=== PATIENT | female | born 1995 | race Caucasian/White ===

== ENCOUNTER 2020-04-13 08:01 | Outpatient (CLI) | payer OTHER ==
[~2020-04-13 08:01] MED LIST: COLACE 100MG C100 MG PO; FEOSOL325 MG PO; MACROBID 100 M100 MG PO; PRENATAL VITAM1 EAC3 PO
== END 2020-04-13 11:43 | disposition home or self-care (01) ==
LOC: GENOP 08:01
DX: O99.891 Other specified diseases and conditions complicating pregnancy (principal); M54.5 Low back pain; R10.9 Unspecified abdominal pain; Z3A.30 30 weeks gestation of pregnancy
CPT/HCPCS: 81001; 82731; G0463

== ENCOUNTER 2020-05-12 14:55 | Outpatient (CLI) | payer OTHER | END 2020-05-12 17:28 | disposition home or self-care (01) | LOC: GENOP 14:55 | DX: O26.893 Other specified pregnancy related conditions, third trimester (principal); R10.9 Unspecified abdominal pain; Z3A.34 34 weeks gestation of pregnancy | CPT/HCPCS: 81001; G0463 ==

== ENCOUNTER 2020-05-19 21:59 | Outpatient (CLI) | payer OTHER | END 2020-05-19 22:36 | disposition home or self-care (01) | LOC: GENOP 21:59 | DX: O42.913 Preterm premature rupture of membranes, unspecified as to length of time between rupture and onset of labor, third trimester (principal); Z3A.35 35 weeks gestation of pregnancy | CPT/HCPCS: 83518; G0463 ==

== ENCOUNTER 2020-05-23 10:40 | Outpatient (CLI) | payer OTHER | END 2020-05-23 12:48 | disposition home or self-care (01) | LOC: GENOP 10:40 | DX: Z04.2 Encounter for examination and observation following work accident (principal); O36.8120 Decreased fetal movements, second trimester, not applicable or unspecified; Z3A.24 24 weeks gestation of pregnancy; W19.XXXA Unspecified fall, initial encounter; Y92.9 Unspecified place or not applicable; Y99.0 Civilian activity done for income or pay | CPT/HCPCS: 59025; 81001 ==

== ENCOUNTER 2020-06-11 13:16 | Outpatient (CLI) | payer OTHER ==
[2020-06-11 14:13] LABS: RED BLOOD COUNT 3.56 M/UL (4.00-5.10); WHITE BLOOD COUNT 8.6 K/UL (4.5-11.0)
== END 2020-06-11 14:28 | disposition home or self-care (01) ==
LOC: GENOP 13:16
PROVIDERS: Obstetrics & Gynecology
DX: Z01.812 Encounter for preprocedural laboratory examination (principal); O34.219 Maternal care for unspecified type scar from previous cesarean delivery
CPT/HCPCS: 36415; 81001; 85025; 87661

== ENCOUNTER 2020-06-14 07:43 | Inpatient (IN) | payer OTHER ==
[~2020-06-14] VITALS: Ht 167.6 cm; Wt 116.6 kg
[2020-06-14] MEDS ORDERED: PRENATA CHEWAB1 EACH PO (08:35)
[2020-06-14] MEDS ORDERED: IBUPROFEN600 MG PO (09:09)
[2020-06-14] MEDS ORDERED: HYDROCODON-ACE1 EAC4 PO ×2 (09:09→09:17)
[2020-06-14] MEDS ORDERED: DOCUSATE SODIU100 MG PO (09:09)
[2020-06-15 04:56] LABS: HEMOGLOBIN 8.2 gm/dl (12.3-15.3)
== END 2020-06-16 17:24 | disposition home or self-care (01) | DRG 788 ==
LOC: OB 07:43
PROVIDERS: ADMIT Obstetrics & Gynecology
PROC: 10D00Z1 Extraction of Products of Conception, Low, Open Approach (ICD-10-PCS; 2020-06-14)
PROC: 4A1HX4Z Monitoring of Products of Conception, Cardiac Electrical Activity, External Approach (ICD-10-PCS; principal; 2020-06-14 09:00)
DX: O34.211 Maternal care for low transverse scar from previous cesarean delivery (principal); N85.8 Other specified noninflammatory disorders of uterus; O99.214 Obesity complicating childbirth; E66.01 Morbid (severe) obesity due to excess calories; Z20.822 Contact with and (suspected) exposure to COVID-19; J45.909 Unspecified asthma, uncomplicated; K43.9 Ventral hernia without obstruction or gangrene; K66.0 Peritoneal adhesions (postprocedural) (postinfection); O90.2 Hematoma of obstetric wound; Z3A.39 39 weeks gestation of pregnancy; Z37.0 Single live birth; Z80.9 Family history of malignant neoplasm, unspecified; Z83.3 Family history of diabetes mellitus; Z84.89 Family history of other specified conditions; Z82.49 Family history of ischemic heart disease and other diseases of the circulatory system
CPT/HCPCS: 36415; 81001; 82800; 85014; 85018; 85025; 87086; 87661; C9113; J0690; J1170; J1650; J2274; J2405; J2550; J2590; J3010; J7120

== ENCOUNTER 2020-06-25 22:11 | Emergency (ER) | payer OTHER ==
[~2020-06-25 22:11] MED LIST changes: +DOCUSATE SODIU100 MG PO; +HYDROCODON-ACE1 EAC4 PO; +IBUPROFEN600 MG PO; +PRENATA CHEWAB1 EACH PO
== END 2020-06-26 | disposition left against medical advice (07) ==
LOC: ER1 22:11
DX: Z53.21 Procedure and treatment not carried out due to patient leaving prior to being seen by health care provider (principal)

== ENCOUNTER 2021-04-04 13:07 | Emergency (ER) | payer OTHER ==
[2021-04-04] MEDS ORDERED: NAPROSYN500 MG PO (14:54)
[2021-04-04] MEDS ORDERED: CYCLOBENZAPRINE10 MG PO (14:54)
== END 2021-04-04 14:59 | disposition home or self-care (01) ==
LOC: ER1 13:07
DX: M54.50 Low back pain, unspecified (principal)
CPT/HCPCS: 96372; 99283; J1885